=== PATIENT | male | born 1960 | race Caucasian/White ===

== ENCOUNTER 2017-06-30 12:49 | Emergency (ER) | payer MEDICAID ==
[2017-06-30 12:56] VITALS: RESP 18
--- NOTE | 2017-06-30 13:45 | EDPHY ---
H & P Stated Complaint: voluntary mental health eval/hearing voices - Personal History Current Tetanus/Diphtheria Vaccine: Yes - Medical/Surgical History Hx Asthma: No Hx Chronic Respiratory Disease: No Hx Diabetes: No Hx Cardiac Disease: No Hx Renal Disease: No Hx Cirrhosis: No Hx Alcoholism: No Hx HIV/AIDS: Yes Hx Splenectomy or Spleen Trauma: No Other PMH: hiv hepatitis - Social History Smoking Status: Current every day smoker Time Seen by Provider: 06/30/17 13:21 HPI/ROS: CHIEF COMPLAINT: " I keep hearing voices" HISTORY OF PRESENT ILLNESS: 36-year-old male in a HIV-positive male with nondetectable viral load, was seen at the [facility] today for his usual checkup, referred to the ER for evaluation of his audio hallucinations. He denies diagnosed history of mental illness. She denies suicidal or homicidal ideation. Denies headache. Denies gait instability. Denies fever chills. Denies nausea or vomiting or recent illness. No nuchal rigidity PRIMARY CARE PROVIDER: [facility] REVIEW OF SYSTEMS: A ten point review of systems was performed and is negative with the exception of the items mentioned in the HPI PAST MEDICAL & SURGICAL HISTORY: HIV positive with undetectable viral load SOCIAL HISTORY: Single PHYSICAL EXAM (Prior to examination, patient consented to physical exam, hands were washed and my usual and customary physical exam procedures followed) 1) GENERAL: Well-developed, well-nourished, alert and oriented. Appears to be in no acute distress. Answering questions appropriately. 2) HEAD: Normocephalic, atraumatic 3) HEENT: Pupils equal, round, reactive to light bilaterally. Sclera anicteric. 4) NECK: Full range of motion, no meningeal signs. 5) LUNGS: Clear auscultation bilaterally 6) HEART: Regular rate and rhythm 7) ABDOMEN: No guarding, no rebound, no focal tenderness, 8) MUSCULOSKELETAL: No peripheral edema or discoloration. 9) BACK: no visual or palpable abnormality. 10) SKIN: No rash, no petechiae. 11) Psychiatric: Patient is oriented X 3, there is no agitation.Calm cooperative 12) NEURO: Awake, alert, and oriented to person, place and time. Answers questions appropriately. There were no obvious focal neurologic abnormalities. No cerebellar dysfunction. Normal steady gait. Upper and lower extremities bilaterally with strength 5 / 5, reflexes 2+. 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 (Laly Winter) Constitutional: Initial Vital Signs Temperature (C) 36.9 C 06/30/17 12:53 Heart Rate 96 06/30/17 12:53 Respiratory Rate 18 06/30/17 12:53 Blood Pressure 153/95 H 06/30/17 12:53 O2 Sat (%) 98 06/30/17 12:53 O2 Delivery Mode Room Air Allergies/Adverse Reactions: Sulfa (Sulfonamide Antibiotics) Allergy (Verified 06/30/17 12:52) Home Medications: Medication Instructions Recorded Descovy 200-25 mg Tablet 06/30/17 Tivicay 06/30/17 Medical Decision Making ED Course/Re-evaluation: 3:27 p.m.: Phone consultation with [facility] [employer] IN[employer]CTOR Roz Rodney who had evaluated the patient earlier in clinic today and is familiar with the patient' s past medical history informs me that she thinks that his current hallucinations are less likely secondary to acute medical or HIV related pathology more likely related to acute psychiatric pathology. 5:00 p.m.: Care turned over to Dr. Lakeisha Marcano, mental health evaluation pending (Laly Winter) 6:30 p.m.-this patient was seen by mental health and felt appropriate for inpatient mental health care. He was placed on an M1 hold for grave disability. (Lakeisha Marcano) I did not see this patient while he was in the emergency department. However his care was discussed with the PA the patient was in the department. I agree with treatment plan and management (Guillaume Owens) Care Turn Over: 2019 Care assumed by me from Dr Marcano pending placement. 2024 Pt has been accepted at [facility] by Dr Morelos. I have completed the EMTALA. (Tariq Pinto) - Data Points Laboratory Results: Laboratory Results 06/30/17 13:13 06/30/17 13:13 06/30/17 06/30/17 06/30/17 14:00 13:13 13:13 WBC 10.56 10^3/uL H 10^3/uL (3.80-9.50) RBC 4.30 10^6/uL L 10^6/uL (4.40-6.38) Hgb 15.2 g/dL g/dL (13.7-17.5) Hct 44.3 % % (40.0-51.0) MCV 103.0 fL H fL (81.5-99.8) MCH 35.3 pg H pg (27.9-34.1) MCHC 34.3 g/dL g/dL (32.4-36.7) RDW 12.7 % % (11.5-15.2) Plt Count 336 10^3/uL 10^3/uL (150-400) MPV 10.5 fL fL (8.7-11.7) Neut % (Auto) 66.9 % % (39.3-74.2) Lymph % (Auto) 23.0 % % (15.0-45.0) [place] % (Auto) 8.1 % % (4.5-13.0) Eos % (Auto) 1.4 % % (0.6-7.6) Baso % (Auto) 0.2 % L % (0.3-1.7) Nucleat RBC Rel Count 0.0 % % (0.0-0.2) Absolute Neuts (auto) 7.06 10^3/uL H 10^3/uL (1.70-6.50) Absolute Lymphs (auto) 2.43 10^3/uL 10^3/uL (1.00-3.00) Absolute Monos (auto) 0.86 10^3/uL H 10^3/uL (0.30-0.80) Absolute Eos (auto) 0.15 10^3/uL 10^3/uL (0.03-0.40) Absolute Basos (auto) 0.02 10^3/uL 10^3/uL (0.02-0.10) Absolute Nucleated RBC 0.00 10^3/uL 10^3/uL (0-0.01) Immature Gran % 0.4 % % (0.0-1.1) Immature Gran # 0.04 10^3/uL 10^3/uL (0.00-0.10) Sodium 141 mEq/L mEq/L (134-144) Potassium 4.5 mEq/L mEq/L (3.5-5.2) Chloride 105 mEq/L mEq/L (97-110) Carbon Dioxide 23 mEq/l mEq/l (22-31) Anion Gap 13 mEq/L mEq/L (8-16) BUN 16 mg/dL mg/dL (7-23) Creatinine 1.0 mg/dL mg/dL (0.7-1.3) Estimated GFR > 60 Glucose 100 mg/dL mg/dL (70-100) Calcium 10.2 mg/dL mg/dL (8.5-10.4) Salicylates < 1.0 mg/dL L mg/dL (2.0-20.0) Urine Opiates Screen NEGATIVE (NEGATIVE) Acetaminophen < 10 mcg/mL L mcg/mL (10.0-30.0) Urine Barbiturates NEGATIVE (NEGATIVE) Ur Phencyclidine Scrn NEGATIVE (NEGATIVE) Ur Amphetamine Screen NEGATIVE (NEGATIVE) U Benzodiazepines Scrn NEGATIVE (NEGATIVE) Urine Cocaine Screen NEGATIVE (NEGATIVE) U Marijuana (THC) Screen NEGATIVE (NEGATIVE) Ethyl Alcohol < 10 mg/dL mg/dL (0-10) Medications Given: Discontinued Medications Nicotine (Nicoderm Cq) 21 mg TD EDNOW ONE Stop: 06/30/17 16:14 Last Admin: 06/30/17 16:13 Dose: 21 mg Departure - Departure Disposition: Other Psych, Not [place] Clinical Impression: Hallucination, Acute psychosis Condition: Fair Referrals: Roz Rodney NP [Primary Care Provider] - As per Instructions
[2017-06-30 15:23] LABS: % IMMATURE GRANULYOCYTES 0.4 % (0.0-1.1); ABSOLUTE IMMATURE GRANULOCYTES 0.04 10^3/uL (0.00-0.10); ADD DIFF? NO; ADD MORPH? NO; ADD SCAN? NO; ATYPICAL LYMPHOCYTE FLAG 0 (0-99); FRAGMENT RBC FLAG 0 (0-99); HEMATOCRIT 44.3 % (40.0-51.0); HEMOGLOBIN 15.2 g/dL (13.7-17.5); LEFT SHIFT FLG 0 (0-99); LIPEMIA HEMOLYSIS FLAG 90 (0-99); MEAN CELL HEMOGLOBIN 35.3 pg (27.9-34.1); MEAN CELL HEMOGLOBIN CONCENTR. 34.3 g/dL (32.4-36.7); MEAN PLATELET VOLUME 10.5 fL (8.7-11.7); PLATELET CLUMPS FLAG 10 (0-99); PLATELET COUNT 336 10^3/uL (150-400); RED CELL DISTRIBUTION WIDTH 12.7 % (11.5-15.2)
[2017-06-30 15:28] LABS: ANION GAP 13 mEq/L (8-16); CALCIUM 10.2 mg/dL (8.5-10.4); CARBON DIOXIDE 23 mEq/l (22-31); CHLORIDE 105 mEq/L (97-110); ETHANOL SERUM < 10 mg/dL (0-10); GLOMERULAR FILTRATION RATE > 60; GLUCOSE 100 mg/dL (70-100); POTASSIUM 4.5 mEq/L (3.5-5.2); SALICYLATE < 1.0 mg/dL (2.0-20.0); SODIUM 141 mEq/L (134-144)
[2017-06-30] MEDS ORDERED: NICOTINE 21 MG/24 HR PATCH TD ONE ×2 (16:08→16:13)
[2017-06-30 20:33] VITALS: PULSE 86; O2SAT 96
[2017-06-30 23:17] VITALS: BP 147/103; TEMP 98.8
== END 2017-06-30 23:20 ==
DX: F23 Brief psychotic disorder (principal); F17.200 Nicotine dependence, unspecified, uncomplicated
CPT/HCPCS: 80305; G0480

== ENCOUNTER → 2018-02-17 | Outpatient (CLI) | payer MEDICAID | LOC: FIMAGING 10:28 | PROVIDERS: ATTEND Nurse Practitioner | DX: J98.4 Other disorders of lung (principal); Z72.0 Tobacco use | CPT/HCPCS: 87536-90 ==